=== PATIENT | male | born 1935 | race Two or more races ===

== ENCOUNTER 2017-08-29 08:13 | Outpatient (CLI) | payer OTHER | END 2017-08-29 08:19 | disposition home or self-care (01) | LOC: SONOGRAMA 08:13 → MAMO-SONO 08:15 → SONOGRAMA 08:19 | DX: K76.89 Other specified diseases of liver (principal); I10 Essential (primary) hypertension ==

== ENCOUNTER 2017-09-19 09:54 | Outpatient (CLI) | payer OTHER | END 2017-09-19 10:51 | disposition home or self-care (01) | LOC: SONOGRAMA 09:54 | DX: N40.1 Benign prostatic hyperplasia with lower urinary tract symptoms (principal) ==

== ENCOUNTER 2018-03-09 11:59 | Outpatient (CLI) | payer OTHER | END 2018-03-09 12:55 | disposition home or self-care (01) | LOC: RAD 11:59 | DX: R06.02 Shortness of breath (principal) ==

== ENCOUNTER 2018-06-13 11:19 | Outpatient (CLI) | payer OTHER | END 2018-06-13 11:51 | disposition home or self-care (01) | LOC: RAD 501 11:19 | DX: M25.561 Pain in right knee (principal) ==

== ENCOUNTER 2018-06-19 14:56 | Outpatient (CLI) | payer OTHER | END 2018-06-19 15:04 | disposition home or self-care (01) | LOC: NUCLEAR 14:56 | DX: M81.0 Age-related osteoporosis without current pathological fracture (principal) ==

== ENCOUNTER 2018-08-14 11:17 | Outpatient (CLI) | payer OTHER | END 2018-08-14 11:19 | disposition home or self-care (01) | LOC: SONOGRAMA 11:17 | DX: I10 Essential (primary) hypertension (principal); K76.0 Fatty (change of) liver, not elsewhere classified ==

== ENCOUNTER 2019-08-29 07:38 | Outpatient (CLI) | payer OTHER | END 2019-08-29 08:14 | disposition home or self-care (01) | LOC: RAD 07:38 → MAMO-SONO 07:45 → RAD 08:14 | DX: K76.0 Fatty (change of) liver, not elsewhere classified (principal); I10 Essential (primary) hypertension; R16.0 Hepatomegaly, not elsewhere classified; Z87.891 Personal history of nicotine dependence ==